=== PATIENT | female | born 1975 | race Caucasian/White ===

== ENCOUNTER 2018-12-20 05:53 | Observation (INO) ==
--- NOTE | 2018-12-18 13:24 | Anesthesiology Consultation ---
Date of Service December 18, 2018 Assessment & Plan Chart Review Chart Review: Acceptable Risk for Surgery Consults Requested none History Surgery Operation Date: 12/20/18 09:30 Proposed Procedures p Bilateral Breast Mastectomy with Bilateral [place] Lymph Node Biopsy - Dr. Mota - Ramón Mota, DO s Bilateral First Stage Immediate Breast Reconstuction with Tissue Expanders and Acellular Dermal Matrix - Manulea Warner MD Height/Weight Height: 5 ft 8 in Weight: 57.606 kg Allergies Allergy/AdvReac Type Severity Reaction Status Date / Time No Known Allergies Allergy Verified 12/15/18 13:16 Medications Home Medications Medication Instructions Recorded Confirmed Last Taken ascorbic acid (vitamin C) 500 mg 500 mg PO QAM tab 10/31/18 12/15/18 Unknown tablet calcium carbonate 500 mg calcium 500 mg PO QPM tab 10/31/18 12/15/18 Unknown (1,250 mg) tablet multivitamin tablet 1 tab PO QAM 10/31/18 12/15/18 Unknown omega 2-hxq-jok-fish oil 1,000 mg 2 cap PO QAM 10/31/18 12/15/18 Unknown (120 mg-180 mg) capsule vitamin E succinate 400 unit tablet 400 unit PO QAM tab 10/31/18 12/15/18 Unknown Pseudophedrine 1 tab PO QAM PRN 12/15/18 Unknown Past Medical History Medical History Breast cancer Ductal carcinoma in situ (DCIS) of right breast Hx of syncope UNKNOWN ETIOLOGY - ADVISED TO STAY WELL HYDRATED. Hypotension GETS LIGHTHEADEDNESS Past Family History Family History Grandmother (Paternal) Family hx of colon cancer Grandmother Breast cancer Ovarian cancer Past Surgical History Surgical History H/O wisdom tooth extraction History of breast biopsy S/P LASIK surgery S/P breast biopsy, right (10/20/18) Right Breast Partial Mastectomy with Needle Localization 10/20/18 Dr. Mota S/P left knee arthroscopy Social History Smoking Status: Never smoker Do You Dip or Chew Tobacco: No Hx Alcohol Use: Yes Alcohol type: hard liquor alcohol intake frequency: holidays/special occasions only Hx Substance Use: Yes substance use type: other Substance Use Type Other:: CBD OIL-ORAL INGESTION DAILY-STOPPED 2 WEEKS AGO
--- NOTE | 2018-12-19 14:54 | Nuclear Medicine Report ---
LYMPHOSCINTIGRAPHY CLINICAL HISTORY: Bilateral breast cancer. PROCEDURE: Using standard sterile technique, 4 intradermal and one deep injection of 0.515 mCi of Lym phoseek was placed in the left breast. The patient tolerated the procedure well. There were no immedi ate complications. The patient was subsequently transported to the surgical suite. No imaging was obt ained at the referring physician's request. IMPRESSION: Injection of 0.515 mCi of Lymphoseek in the left breast. Electronically signed by: Khris Anne M.D. 12/19/2018 2:53 PM
[2018-12-20] MEDS ORDERED: CEFAZOLIN 2000MG 2,000 MG/15 ML SYR IV SCH (06:00)
[2018-12-20] MEDS ORDERED: LR 15ML/HR IV SCH (06:00)
[2018-12-20] MEDS ORDERED: ONDANSETRON INJ 2 MG/ML 2 ML VIAL ONE (06:42)
[2018-12-20] MEDS ORDERED: fentaNYL citrate 100 MCG/2 ML VIAL ONE ×3 (06:42→15:07)
[2018-12-20] MEDS ORDERED: MIDAZOLAM HCL 1 MG/ML 2ML VIAL ONE (06:42)
[2018-12-20] MEDS ORDERED: LIDOCAINE HCL 2% 2 ML VIAL/AMP(20MG/ML) INFIL ONE (06:42)
[2018-12-20] MEDS ORDERED: ROCURONIUM BROMIDE 10 MG/ML 5 ML VIAL ONE ×5 (06:42→09:10)
[2018-12-20] MEDS ORDERED: PROPOFOL IV EMULSION 10 MG/ML 20 ML VIAL IV ONE (06:42)
--- NOTE | 2018-12-20 07:06 | History & Physical Bridge Note ---
Date of Service December 20, 2018 History & Physical Bridge Note I have examined the patient, reviewed the History & Physical and in the interval since the performance of the History & Physical I have noted the following changes of clinical significance: no changes noted
--- NOTE | 2018-12-20 07:08 | History & Physical Report ---
Date of Service December 20, 2018 Assessment & Plan (1) DCIS (ductal carcinoma in situ) of breast: We had a long discussion...please see my office H&P for full discussion. discussed options and risks ( bleeding/infection/dvt/pe/mi/cva/hematoma/seroma/lymphedema/nerve damage/etc...). questions answered. will proceed with b/l mastomies with b/l SLN biopsies with placement of tissue expanders. History of Present Illness Primary Care Provider: NO PCP pt with routine mammogram showing an abnormality. had bx showing right breast DCIS. partial mastectomy showed large area of DCIS with +margins. f/u MRI shows another abnormality in her left breast. here today for definitive tx of b/l mastectomies with b/l SLN bx for high risk DCIS and placement of tissue expanders by Dr. Warner. Allergies Allergy/AdvReac Type Severity Reaction Status Date / Time No Known Allergies Allergy Verified 12/20/18 06:23 Home Medications Home Medications Medication Instructions Recorded Confirmed Type ascorbic acid (vitamin C) 500 mg 500 mg PO QAM tab 10/31/18 12/20/18 History tablet calcium carbonate 500 mg calcium 500 mg PO QPM tab 10/31/18 12/20/18 History (1,250 mg) tablet multivitamin tablet 1 tab PO QAM 10/31/18 12/20/18 History omega 6-ejp-jyb-fish oil 1,000 mg 2 cap PO QAM 10/31/18 12/20/18 History (120 mg-180 mg) capsule vitamin E succinate 400 unit tablet 400 unit PO QAM tab 10/31/18 12/20/18 History Pseudophedrine 1 tab PO QAM PRN 12/15/18 12/20/18 History Past Med/Surg History Medical History Breast cancer Ductal carcinoma in situ (DCIS) of right breast Hx of syncope UNKNOWN ETIOLOGY - ADVISED TO STAY WELL HYDRATED. Hypotension GETS LIGHTHEADEDNESS Surgical History H/O wisdom tooth extraction History of breast biopsy S/P LASIK surgery S/P breast biopsy, right (10/20/18) Right Breast Partial Mastectomy with Needle Localization 10/20/18 Dr. 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 Required: No Beliefs That Will Affect Care: None Current Living Situation: Significant Other Current Living Situation Comment: FRIEND Other Information That Helps Us Care for You: No Feels Safe at Home: Yes Safety Concerns: Feels Safe At This Time Smoking Status: Never smoker Do You Dip or Chew Tobacco: No ; Second Hand Exposure: Yes ( A CHILD) ; Hx Alcohol Use: Yes Alcohol type: hard liquor Hx Substance Use: Yes substance use type: other Substance Use Type Other:: CBD OIL-ORAL INGESTION DAILY-STOPPED 2 WEEKS AGO Review of Systems All systems reviewed & are unremarkable except as noted in HPI & below Physical Exam Constitutional: WD/WN, vitals as above no acute distress and not ill appearing Eyes: PERRL, conjunctivae normal, anicteric sclerae EOM intact bilaterally ENMT: external ear and nose normal, oropharynx normal Ears: no hearing impairment Neck: trachea midline, no thyromegaly Respiratory: normal respiratory effort; no respiratory distress and does not use accessory muscles Cardiovascular: Rate/Rhythm: regular rate and regular rhythm Chest (Breasts): Additional Comments: right breast incision well healed. Gastrointestinal (Abdomen): normal bowel sounds, soft, nontender, no hepatosplenomegaly Skin: no rashes, warm and dry Psychiatric: Orientation: alert, oriented x 3 and cooperative
[2018-12-20] MEDS ORDERED: ATROPINE SULFATE 0.1 MG/ML 10ML SYR IV PRN ×2 (07:11→15:11)
[2018-12-20] MEDS ORDERED: PROMETHAZINE HCL 6.25 MG in SODIUM CHLORIDE 0.9% 50 ML IV PRN ×2 (07:11→15:13)
[2018-12-20] MEDS ORDERED: ePHEDrine sulfate 50 MG/ML AMP IV PRN ×2 (07:11→15:12)
[2018-12-20] MEDS ORDERED: HYDROmorphone INJ 2 MG/ML SYR/VIAL IV PRN ×2 (07:11→15:12)
[2018-12-20] MEDS ORDERED: ONDANSETRON INJ 2 MG/ML 2 ML VIAL IV PRN ×3 (07:11→15:12)
[2018-12-20] MEDS ORDERED: fentaNYL citrate 100 MCG/2 ML VIAL IV PRN ×2 (07:11→15:10)
[2018-12-20] MEDS ORDERED: BACITRACIN INJ 50,000 UNIT VIAL ONE ×2 (07:14→09:42)
[2018-12-20] MEDS ORDERED: LIDOCAINE/EPINEPHRINE 1% 20 ML VIAL ONE (07:14)
[2018-12-20] MEDS ORDERED: CEFAZOLIN 250 MG/ML 1 GM VIAL ONE ×3 (07:14→10:37)
[2018-12-20] MEDS ORDERED: BUPIVACAINE 0.25% 30 ML VIAL ONE (07:14)
[2018-12-20] MEDS ORDERED: GENTAMICIN SULFATE 40 MG/ML 2 ML VIAL ONE ×2 (07:14→09:38)
[2018-12-20] MEDS ORDERED: BUPIVACAINE 0.5 % 5 MG/1 ML PF 10ML VIAL ONE (07:21)
[2018-12-20] MEDS ORDERED: ISOSULFAN BLUE 10 MG/ML VIAL 5 ML ONE (08:04)
[2018-12-20] MEDS ORDERED: ACETAMINOPHEN 1000 MG/100 ML IV IV ONE (08:12)
--- NOTE | 2018-12-20 11:14 | Operative Report ---
Post Operative Report Pre & Post Diagnosis Operation Date: 12/20/18 07:15 Pre-Op Diagnosis: Right Breast Ductal Carcinoma In Situ, Left Breast Mass on MRI Post-Op Diagnosis: Right Breast Ductal Carcinoma In Situ, Left Breast Mass on MRI Procedure Operation Date: 12/20/18 07:15 Actual Procedures p Bilateral total Mastectomy with Bilateral [place] Lymph Node Biopsy(Bilateral) - DO joseph Conner Bilateral First Stage Immediate Breast Reconstruction with Tissue Expanders and Acellular Dermal Matrix(Bilateral) - Manuela Warner MD Surgeon DO Assistant Mima Conner pa-c Estimated Blood Loss 50 Findings Consistent with Post-Op Diagnosis Specimens 1. right breast 2. right sentinel lymph node 3. left breast 4. left sentinel lymph node Description of Procedure Prior to coming to the operating room the patient had been to nuclear medicine the day before and injected with technetium 99. She was then marked in the preoperative area by Dr. Warner. We then brought her to the operating room and placed in supine position. After successful intubation the bilateral upper chest, breast and bilateral upper arms and axillas were sterilely prepped and draped in usual fashion. I was able to identify the right axillary sentinel lymph node with the neoprobe device and made a marked accordingly in the right axilla. We then used a 15 blade scalpel to make an inframammary incision through her old scar line as marked by Dr. Warner. We began by carrying this down through the soft tissue using cautery. We made skin flaps anteriorly as well as laterally medially and posteriorly. We continued use traction countertraction blunt dissection and small amounts of cautery to perform the mastectomy. We began by taking the breast tissue off the pectoralis fascia leaving the fascia behind. We then continued this medially and then rolled the breast from medial to lateral. Any small bleeding points were controlled using cautery. We continued the traction countertraction cautery up to the infraclavicular fold and laterally out to the axillary tail. Eventually we were able to remove the entire right breast in one piece. There was a small seroma cavity included with the specimen from her previous partial mastectomy. Once removed we marked to the breast such that one long stitch was lateral 2 short stitches were superior and 2 long stitches were posterior. We then used the neoprobe device and were able to identify the sentinel lymph node through the incision. We used small amounts of cautery and traction as well as dissection with a peanut dissector to remove the sentinel lymph node. We checked it out of the body to ensure that was in fact the "hot" lymph node. There was minimal residual background noise after removing a single solitary sentinel node. We then thoroughly irrigated the wound. There was adequate hemostasis. We packed the wound with antibiotic impregnated sterile sponges. We then changed our gloves as well as instrumentation. We used a similar technique on the left side. I again marked the sentinel lymph node in the left axilla and then created an inframammary incision through a previously marked line. Again we created flaps in all directions using cautery and traction. I was able to start on the medial side and after freeing the breast tissue up posteriorly was able to continue to use traction and countertraction and roll the breast from medial to lateral. Again we carried this up to the infraclavicular fold and laterally to the axillary tail. Again once it was removed we marked it such that one long stitch was lateral 2 short stitches were superior and 2 long stitches were posterior. We thoroughly irrigated the wound and again controlled any bleeding using cautery. On this side however the sentinel lymph node was too superior and posterior for me to reach through the mastectomy incision. We created a separate incision in the axilla. Again using the neoprobe device we were able to carry the incision down using small amounts of cautery until we encountered the lymph node. It was removed and checked to ensure that it was in fact the "hot" node. Once we removed the sentinel node again there was minimal background noise indicating that there was only one sentinel lymph node. Again the wounds were thoroughly irrigated and packed with antibiotic impregnated sterile sponges. At this point in time I scrubbed out of the case. Dr. Warner's team scrubbed into the case. Please see her operative note for the remainder of the procedure. The patient tolerated the procedure well. My physician assistant to the vice president assisted on the entire case including prepping retraction and exposure for my dissection. I attest to the content of the Intraoperative Record and any orders documented therein. Any exceptions are noted below.
[2018-12-20] MEDS ORDERED: CEFAZOLIN 2000MG 2,000 MG/15 ML SYR IV ONE (11:42)
--- NOTE | 2018-12-20 14:31 | Post Operative Brief Note ---
Immediate Post Op Note v1 Date of Surgery December 20, 2018 Pre & Post Diagnosis Operation Date: 12/20/18 07:15 Pre-Op Diagnosis: Right Breast Ductal Carcinoma In Situ, Left Breast Mass on MRI Post-Op Diagnosis: Right Breast Ductal Carcinoma In Situ, Left Breast Mass on MRI Procedure Operation Date: 12/20/18 07:15 Actual Procedures p Bilateral Breast Mastectomy with Bilateral [place] Lymph Node Biopsy(Bilateral) - DO joseph Conner Bilateral First Stage Immediate Breast Reconstruction with Tissue Expanders and Acellular Dermal Matrix(Bilateral) - Manuela Warner MD Surgeon Manuela Warner MD Black Off Worker Debbie Castro PA-C Estimated Blood Loss 60 Findings Consistent with Post-Op Diagnosis Drains Srinivasan-Patrick Drain (X2)
[2018-12-20] MEDS ORDERED: ACETAMINOPHEN 325 MG TAB PO PRN (14:46)
[2018-12-20] MEDS ORDERED: DiphenhydrAMINE HCL 50 MG/ML VIAL IV PRN (14:46)
[2018-12-20] MEDS ORDERED: OXAZEPAM 10 MG CAPSULE PO PRN (14:46)
[2018-12-20] MEDS ORDERED: PROMETHAZINE HCL 12.5 MG in SODIUM CHLORIDE 0.9% 50 ML IV PRN (14:46)
[2018-12-20] MEDS ORDERED: MoRPHine SULFATE 4 MG/ML 1 ML CARP\\VIAL IV PRN ×2 (14:46)
[2018-12-20] MEDS ORDERED: OXYCODONE/ACETAMINOPHEN 5mg/325mg TAB PO PRN (14:46)
[2018-12-20] MEDS ORDERED: MoRPHine SULFATE 2 MG/ML CARP IV PRN (14:46)
--- NOTE | 2018-12-20 15:31 | Anesthesiology Progress Note ---
Date of Service December 20, 2018 Anesthesia Post Procedure Vital Signs Vital Signs: Temp Pulse Pulse Resp BP Pulse Ox 12/20/18 15:20 68 16 110/62 100 12/20/18 15:10 72 16 109/68 100 12/20/18 15:00 75 16 100/64 100 12/20/18 14:50 78 18 108/58 L 100 12/20/18 14:41 35.8 C L 81 18 117/69 100 12/20/18 06:39 36.8 C 81 18 120/68 97 Pain Intensity Right Breast: Pain Intensity: 2 Transfer of Care Handoff Completed per policy Notes Mental Status: alert / awake / arousable Patient Amnestic to Procedure: Yes Nausea / Vomiting: adequately controlled Pain: adequately controlled Airway Patency, RR, SpO2: stable & adequate BP & HR: stable & adequate Hydration State: stable & adequate Anesthetic Complications: no major complications apparent
--- NOTE | 2018-12-20 16:07 | Operative Report ---
Post Operative Report Pre & Post Diagnosis Operation Date: 12/20/18 07:15 Pre-Op Diagnosis: Right Breast Ductal Carcinoma In Situ, Left Breast Mass on MRI Post-Op Diagnosis: Right Breast Ductal Carcinoma In Situ, Left Breast Mass on MRI Procedure Operation Date: 12/20/18 07:15 Actual Procedures p Bilateral Breast Mastectomy with Bilateral [place] Lymph Node Biopsy(Bilateral) - DO joseph Conner Bilateral First Stage Immediate Breast Reconstruction with Tissue Expanders and Acellular Dermal Matrix(Bilateral) - Manuela Warner MD Surgeon Manuela Warner MD Glaze Maker Debbie Castro PA-C Estimated Blood Loss 60 Findings Consistent with Post-Op Diagnosis Specimens additional right breast tissue 6-8 o'clock margin Drains HORTENCIA x2 Anesthesia Type General Indications right breast DCIS, left breast mass on MRI, desiring immediate reconstruction after mastectomy Description of Procedure I began with the left side. The surgical site was prepped and new drapes were placed. A time out was performed. Hemostasis was achieved with electrocautery. Pectoralis major muscle was then identified and elevated. Inferior attachments of pectoralis major muscle were divided along the ribs medially to the sternum. None of the sternal attachments were dissected. The retropectoral plane was then developed using electrocautery. Hemostasis was achieved using cautery. Once adequate dissection had been performed, I then chose a piece of medium contour thick AlloDerm which was then used to create a sling for the lower pole. This was first sutured to the inframammary fold using 2-0 Vicryl U stitches. Pocket was then measured and base diameter was 10 cm. Therefore, I selected a 11 cm Allergan style 133 S MV tissue pastoral worker with fill volume of 250 mL. The pastoral worker was prepared and air was aspirated out. The pastoral worker was soaked in antibiotic irrigation and antibiotic irrigation was used to irrigate the pocket. All instruments were wiped down and gloves were changed. Kelp Gatherer was placed along the inframammary fold as medially as possible. Suture tabs were sutured down to underlying periosteum or muscle fascia using a 2-0 Vicryl suture. The remainder of the pastoral worker was then enclosed using 2-0 Vicryl running suture to reapproximate the AlloDerm which had been trimmed to size and this was approximated to the pectoralis major muscle. Laterally, this was closed down using 2-0 Vicryl interrupted sutures as well. A 15-Spanish Osito drain was placed in the wound and brought out through a separate stab incision. Prior to reapproximating the wound the fill port was identified using the magnifinder and accessed using a Fourte needle. A total of 200 mL were placed prior to closure. Wound was reapproximated using 2-0 Vicryl deep dermal suture, 3-0 PDS superficial dermal suture and 3-0 Monocryl running subcuticular suture. Drain was sutured in place using 3-0 nylon. The left axillary incision from Dr. Mota's sentinel lymph node biopsy was closed in layers using 2-0 Vicryl deep dermal suture, 3-0 PDS interrupted superficial dermal suture, 3-0 Monocryl running subarticular suture. Dermabond was applied. An identical procedure was performed on the right side, with fill volume 200 cc The skin and nipples appeared viable following the procedure and wounds closed with minimal tension. The drain site was dressed using Acticoat dry dressing and Tegaderm. Dry dressings were placed over the incision. A surgical bra was placed. Procedure was tolerated well. Debbie Castro PA-C was present and scrubbed throughout the entire procedure and was instrumental in providing exposure during elevation of pectoralis muscle and suturing of the AlloDerm as well as filling expanders and assisting in wound closure. I attest to the content of the Intraoperative Record and any orders documented therein. Any exceptions are noted below.
[2018-12-20] MEDS ORDERED: PSEUDOEPHEDRINE HCL 30 MG TAB PO PRN (16:30)
[2018-12-20] MEDS: D5W AND 1/2NSS + 20MEQ KCL 20 MEQ/1,000 ML BAG IV SCH (16:42)
[2018-12-20] MEDS: CEFAZOLIN 2000MG 2,000 MG/15 ML SYR IV SCH (17:39)
[2018-12-20] MEDS ORDERED: PNEUMOCOCCAL POLYSACCHARIDES 25 MCG/0.5 ML VIAL/SYR IM ONE (18:45)
[2018-12-20] MEDS ORDERED: PNEUMOCOCCAL ADMINISTRATION CHARGE ONE (18:45)
[2018-12-20] MEDS ORDERED: CALCIUM CARBONATE 1250MG TAB PO SCH (21:00)
[2018-12-20] MEDS: OXYCODONE/ACETAMINOPHEN 5mg/325mg TAB PO PRN (23:58)
[2018-12-21] MEDS: CEFAZOLIN 2000MG 2,000 MG/15 ML SYR IV SCH (01:50)
[2018-12-21] MEDS: D5W AND 1/2NSS + 20MEQ KCL 20 MEQ/1,000 ML BAG IV SCH (05:20)
[2018-12-21] MEDS: OXYCODONE/ACETAMINOPHEN 5mg/325mg TAB PO PRN ×2 (05:20→13:37)
--- NOTE | 2018-12-21 07:28 | Surgery Progress Note ---
Date of Service December 21, 2018 Assessment & Plan (1) DCIS (ductal carcinoma in situ) of breast: pod 1 doing as expected will defer to Dr. Warner's team regarding d/c has f/u with me on tuesday. instructions given. Subjective pt seen. pain manageable. having some numbness and motor control irregularities in her left arm but this has improved overnight. Physical Exam Physical Exam: alert/oriented x 3 nad no respiratory distress dressings intact/clean/dry Results & Data Vital Signs (Past 12 Hours) Vital Signs Temp Pulse Resp BP Pulse Ox 12/21/18 03:30 37.1 C 77 18 126/70 98 12/20/18 23:15 36.9 C 74 18 121/76 99 12/20/18 21:19 37 C 74 16 109/67 98 PG Care Time/CCT Total # of Minutes Spent Total Time Spent with Patient: Total time spent is greater than 50% in coordination of care (as documented) at patient's floor/unit and/or counseling patient:
--- NOTE | 2018-12-21 08:25 | Surgery Progress Note ---
Date of Service December 21, 2018 Assessment & Plan (1) DCIS (ductal carcinoma in situ) of breast: Patient seen and examined this AM. She is POD #1 s/p Bilateral Breast Mastectomy with Bilateral [place] Lymph Node Biopsy with Dr. Mota followed by Bilateral First Stage Immediate Breast Reconstruction with Tissue Expanders and Acellular Dermal Matrix with Dr. Warner. Pain is well-controlled with PO pain medication. She is voiding without issue. She is able to ambulate to and from bathroom without issue. She is tolerating a regular diet without issue. Left arm numbness most likely due to PECS block. This is slowly improving. Awaiting post-op anesthesia evaluation. Patient ok for discharge to home today once she is evaluated by anesthesia. She is aware that HORTENCIA drains will remain in place at discharge. Both written and verbal discharge instructions provided to patient. All questions answered. Patient to return to our office tomorrow for removal of surgical dressings. Subjective Upon entering the room, patient is resting comfortably. States that she was able to get some sleep overnight. She did state that she has taken PO pain medication and reports that her pain is manageable. She does state that since s urgery she has been having numbness in her left arm and having some difficulty lifting left arm, but that this does seem to be slowly improving. Physical Exam Physical Exam: On physical exam- surgical dressings intact. They are clean and dry. No evidence of infection. No evidence of wound dehiscence. Nipples viable. HORTENCIA drains in place (serosang drainage). Since surgery overall output of HORTENCIA drain #1 has been 80 cc of serosang drainage and HORTENCIA drain #2 has been 85 cc of serosang drainage. Surgical dressings reinforced and surgical bra reattached. Results & Data Vital Signs (Past 12 Hours) Vital Signs Temp Pulse Pulse Resp BP Pulse Ox 12/21/18 07:34 37.0 C 60 16 114/70 97 12/21/18 03:30 37.1 C 77 18 126/70 98 12/20/18 23:15 36.9 C 74 18 121/76 99 12/20/18 21:19 37 C 74 16 109/67 98 PG Care Time/CCT Total # of Minutes Spent Total Time Spent with Patient: Total time spent is greater than 50% in coordination of care (as documented) at patient's floor/unit and/or counseling patient:
[2018-12-21] MEDS ORDERED: MULTIVITAMIN TAB PO SCH (09:00)
--- NOTE | 2018-12-21 11:57 | Anesthesiology Progress Note ---
Date of Service December 21, 2018 Anesthesia Post Procedure Vital Signs Vital Signs: Temp Pulse Pulse Pulse Resp BP Pulse Ox 12/21/18 11:06 36.9 C 72 16 116/64 97 12/21/18 09:40 37.0 C 77 60 16 114/70 97 12/21/18 07:34 37.0 C 60 16 114/70 97 12/21/18 03:30 37.1 C 77 18 126/70 98 12/20/18 23:15 36.9 C 74 18 121/76 99 12/20/18 21:19 37 C 74 16 109/67 98 12/20/18 18:49 36.7 C 85 16 113/70 100 12/20/18 17:45 36.5 C 84 16 110/71 100 12/20/18 16:46 36.5 C 74 16 108/69 100 12/20/18 16:23 36.4 C L 80 16 115/69 100 12/20/18 15:40 62 12 104/66 100 12/20/18 15:30 36.4 C L 73 14 110/59 L 100 12/20/18 15:20 68 16 110/62 100 12/20/18 15:10 72 16 109/68 100 12/20/18 15:00 75 16 100/64 100 12/20/18 14:50 78 18 108/58 L 100 12/20/18 14:41 35.8 C L 81 18 117/69 100 Pain Intensity Right Breast: Pain Intensity: 2 Left Elbow: Pain Intensity: 2 Bilateral Breast: Pain Intensity: 2 Transfer of Care Handoff Completed per policy Notes Mental Status: alert / awake / arousable Patient Amnestic to Procedure: Yes Nausea / Vomiting: adequately controlled Pain: adequately controlled Airway Patency, RR, SpO2: stable & adequate BP & HR: stable & adequate Hydration State: stable & adequate Anesthetic Complications: no major complications apparent Notes: Pain is under excellent control with bilateral PECS II blocks. She is complaining of some L arm weakness, which has improved significantly from post operatively yesterday. On exam, she appears to have some mild parasthesia to light touch in the L arm, which does not have an obvious dermatomal distribution. She also has 3/4 handgrip strength on the L and 3/4 shoulder abduction on that side. It is difficult to say if this neuropathy is due to surgical dissection in the axilla, the pecs block, or arm positioning during surgery. The motor involvement of the shoulder seems to make brachial plexus stretch from arm positioning most likely. She has made marked improvements in just 24 hours and has functional use of her arm. I discussed the possible etiologies with the patient and reassured her that she will most likely improve over the course of the next few days. If she still has weakness in 1-2 weeks, would consider neurology evaluation to more accurately elucidate the site of the neuropathy. From our standpoint, the patient is okay to be discharged per the surgical team.
--- NOTE | 2018-12-22 10:51 | Discharge Summary ---
Date of Service December 22, 2018 Admission HPI Per Admitting Provider Please see admission H & P. 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 Surgical dressings are clean- I was able to pull back on surgical dressings to examine nipples, which are viable. Incisions are both clean, dry, intact. No evidence of infection or evidence of dehiscence. + drains (x2) with appropriate drainage. Constitutional WD/WN, vitals as above no acute distress Discharge Data Allergies Allergy/AdvReac Type Severity Reaction Status Date / Time No Known Allergies Allergy Verified 12/20/18 06:23 Procedures Performed Operation Date: 12/20/18 07:15 Actual Procedures p Bilateral Breast Mastectomy with Bilateral [place] Lymph Node Biopsy(Bilateral) - Ramón Mota DO s Bilateral First Stage Immediate Breast Reconstruction with Tissue Expanders and Acellular Dermal Matrix(Bilateral) - Manuela Warner MD Ordered Studies 12/20/18 07:12 US - OR guided needle placemen Routine Hospital Course (1) DCIS (ductal carcinoma in situ) of breast: Patient presented to hospital with Right Breast Ductal Carcinoma In Situ, Left Breast Mass on MRI. She was taken to OR and underwent Bilateral Breast Mastectomy with Bilateral [place] Lymph Node Biopsy with Dr. Mota followed by Bilateral First Stage Immediate Breast Reconstruction with Tissue Expanders and Acellular Dermal Matrix with Dr. Warner. Patient did receive PECS block prior to surgery. There were no intraoperative complications. On POD #1- the patient was feeling well and very good pain control following PECS block. Patient was having some post-operative left arm numbness and motor control irregularities, which was slowly improving per patient. She was ambulating to and from restroom, voiding on own without issue, and she tolerated a regular diet. On exam, her vital signs wer stable and incisions were clean, dry, and intact. HORTENCIA drains x 2 remained at discharge. Patient was examined post- operatively by anesthesia, who felt that left arm numbness and motor involvement was most likely due to "brachial plexus stretch from arm positioning." She had made marked improvements in just 24 hours and has functional use of her arm. Patient was discharged home. Both written and verbal discharge instructions provided to patient. All questions answered. Patient to return to our office tomorrow for removal of surgical dressings. Total Time Total Time Spent Total Time Spent (In Minutes): 10 Discharge Plan Discharge Items Patient Disposition: Home - Self-Care Reason For Visit: Right Breast DCIS, Left Breast Mass on MRI Discharge Diagnosis: Right Breast DCIS, Left Breast Mass on MRI Activity: As commented below Non-emergency contact: Surgeon Call non-emergency contact if: you have any medication questions, your pain is not controlled, your temperature is above 101.5, your wound has increased redness and your wound has increased drainage Follow-up/Referrals: Manuela Warner MD [Physician] - (Please follow-up in the [facility] clinic tomorrow, 12/22/2018. Please call our clinic with any questions or concerns. ) PCP,NO [Primary Care Provider] - Diet: Regular Addtl Attending Provider Instructions: ACTIVITY RECOMMENDATIONS: __Normal activities _X_No bending, lifting or straining __No driving _X_Driving allowed when you are off pain medications _X_Walking permitted __You should have help at home for ___ days DRESSINGS: __No dressings required _X_Keep dressings dry/in place until first office visit __Remove dressings ___ and leave dressings off __Apply ice ___ days __Remove dressings and reapply garment __Apply antibiotic ointment (Bacitracin, Neosporin, etc) to wounds 3-4 times/day for 10 days BATHING: _X_Keep dressings dry _X_Sponge bathing permitted- Do not get surgical dressings wet. __Showering permitted _X_No swimming, hot tubs or soaking in a tub MEDICATIONS: Resume previous medications unless instructed otherwise by your surgeon. _X_Do not use aspirin, Motrin, Advil or Ibuprofen as these may promote bleeding. Please use Tylenol. _X_Prescription(s) provided: Antibiotic prescription and pain medication prescription provided to you at last office visit, please use as prescribed. OTHER INSTRUCTIONS: _X_Record drain output 2-3 times per day SPECIAL CARE INSTRUCTIONS: * It is normal to have a mild fever after surgery. If your temperature is higher than 101.5 degrees F, please call the office at [phone]. * Constipation is a typical side effect of pain medication. An [id number] stool softener will help relieve this. * Leaking around surgical drains may occur and should not cause concern. Sometimes these drains become clogged. If this happens, remove the bulb and milk the clot out of the tube, then replace the bulb. * Drainage from wounds after liposuction is normal and should be expected. Garments will become soiled. You should protect furniture and bedding. This drainage should mostly subside within 2-3 days. Leave garments in place unless instructed to remove them. * If you have unusual drainage from a wound or are concerned you have an infection or have any questions or concerns, please call the office at [phone]. FOLLOW UP VISIT: If not already scheduled, please call the office, , when you return home after surgery to schedule an appointment to be seen in _1__ day. Pending Studies at Discharge: Yes Studies:: Pathology report. Stand-Alone Forms: [facility], Opioid Pain Management Medications and DC Order Prescriptions: Continued ascorbic acid (vitamin C) 500 mg tablet 500 mg PO QAM RF: 0 multivitamin [Daily Multi-Vitamin] tablet 1 tab PO QAM RF: 0 calcium carbonate [Calcium 500] 500 mg calcium (1,250 mg) tablet 500 mg PO QPM RF: 0 Pseudophedrine 1 tab PO QAM PRN (Reason: Allergy Symptoms) RF: 0 Discontinued vitamin E succinate 400 unit tablet 400 unit PO QAM RF: 0 omega 5-foa-xjn-fish oil [Fish Oil] 1,000 mg (120 mg-180 mg) capsule 2 cap PO QAM RF: 0 Discharge Orders: Discharge Order (Routine); Ordered 12/21/18 Ordered By: Debbie Adair/Other Patient Handouts: Surgery Prevent DVT After, Mastectomy W Reconstruction Admission Data Admit Date/Time: 12/20/18 14:41 Attending Provider: Manuela Warner Admit Provider: Manuela Warner Primary Care Provider: PCP,NO Other Providers: Manuela Warner Other Interventions: Discharge Summary Assessment (RN) Last Done: 12/21/18 09:40 DC Date/Time DO NOT enter until pt leaves facility: 12/21/18 14:29 Supervising Physician Co-Signing Physician Notes Dr. Manuela Warner
== END 2018-12-21 14:29 | disposition home or self-care (01) ==
LOC: 3N 05:53 → ASU 05:53
DX: D05.10 Intraductal carcinoma in situ of unspecified breast